=== PATIENT | male | born 1985 | race Two or more races ===

== ENCOUNTER 2021-07-21 11:00 | Outpatient (CLI) | payer OTHER | END 2021-07-21 11:30 | disposition home or self-care (01) | LOC: PPH VACUNA 11:00 | PROVIDERS: ATTEND Emergency Medicine Pediatric Emergency Medicine | DX: Z23 Encounter for immunization (principal) ==

== ENCOUNTER 2025-03-07 05:17 | Emergency (ER) | payer OTHER ==
[~2025-03-07] VITALS: Ht 177.8 cm; Wt 146.1 kg
[2025-03-07 05:28] VITALS: O2SAT 97
[2025-03-07] MEDS ORDERED: KETOROLAC TROMETHAMINE 60 MG VIAL IM STA (07:24)
[2025-03-07] MEDS ORDERED: TRIAMCINOLONE ACETONIDE 40 MG/ML VIAL IM STA (07:24)
[2025-03-07] MEDS ORDERED: IBUPROFEN800 MG PO (10:10)
[2025-03-07 11:55] VITALS: BP 130/81
== END 2025-03-07 11:56 | disposition home or self-care (01) ==
LOC: ER 05:17
DX: M65.262 Calcific tendinitis, left lower leg (principal); Z88.0 Allergy status to penicillin